=== PATIENT | female | born 1945 | race Caucasian/White ===

== ENCOUNTER 2020-05-02 19:37 | Emergency (ER) | payer MEDICARE ==
[~2020-05-02] VITALS: Ht 167.6 cm; Wt 83.9 kg
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
--- NOTE | 2020-05-02 20:46 | NUR ---
BROUGHT FOR CT
[2020-05-02] MEDS ORDERED: HYDROCODONE/APAP 5/325MG TABLET ONE (21:00)
[2020-05-02] MEDS ORDERED: HYDROCODONE/APAP 5/325MG TABLET PO ONE (21:00)
--- NOTE | 2020-05-02 21:03 | NUR ---
PT ON THE PHONE WITH FAMILY. MEDICATED. VSS.
--- NOTE | 2020-05-02 21:41 | NUR ---
Patient discharged to home in stable condition. Written and verbal after care instructions given. Patient verbalizes understanding of instruction and RX. Pt denies pain. VSS.
[2020-05-02 21:42] VITALS: BP 118/65
== END 2020-05-02 21:49 | disposition home or self-care (01) ==
LOC: ER 19:50
DX: S01.511A Laceration without foreign body of lip, initial encounter (principal); S63.591A Other specified sprain of right wrist, initial encounter; S63.592A Other specified sprain of left wrist, initial encounter; S93.491A Sprain of other ligament of right ankle, initial encounter; S09.8XXA Other specified injuries of head, initial encounter; I25.10 Atherosclerotic heart disease of native coronary artery without angina pectoris; Z79.82 Long term (current) use of aspirin; R51 Headache; I10 Essential (primary) hypertension; E11.9 Type 2 diabetes mellitus without complications; F03.90 Unspecified dementia, unspecified severity, without behavioral disturbance, psychotic disturbance, mood disturbance, and anxiety; E78.00 Pure hypercholesterolemia, unspecified; W01.0XXA Fall on same level from slipping, tripping and stumbling without subsequent striking against object, initial encounter; Y93.89 Activity, other specified; Y92.89 Other specified places as the place of occurrence of the external cause; Y99.8 Other external cause status
CPT/HCPCS: 70450-TC; 71100-TC; 73110; 73610-TC